=== PATIENT | female | born 1985 | race Caucasian/White ===

== ENCOUNTER 2018-04-19 10:53 | Emergency (ER) | payer OTHER ==
[2018-04-19 12:44] LABS: Absolute Lymphocytes (CBC) 1.8 K/uL (0.7-4.9); Absolute Monocytes 0.4 K/uL (0.1-1.3); Absolute Neutrophil 3.1 K/uL (1.8-8.0); Basophils % 0.6 % (0-1.3); Eosinophils % 2.1 % (0-4.4); Hematocrit 41.2 % (36.0-45.0); Lymphocytes % 32.9 % (15.3-44.8); MCH 32.6 pg (27.0-35.0); MCV 93.3 fL (80-100); MPV 8.5 fL (7.6-11.3); Monocytes % 7.6 % (3.3-12.3); RBC Red Blood Cell Count 4.42 M/uL (3.86-4.86)
[2018-04-19 13:02] LABS: Urine Blood NEGATIVE (NEG); Urine Glucose NEGATIVE (NEG); Urine Protein NEGATIVE (NEG); Urine Specific Gravity 1.015 (1.005-1.030); Urine pH 7.5 (5.0-7.0)
[2018-04-19 13:10] LABS: ALT/SGPT 33 U/L (12-78); AST/SGOT 19 U/L (15-37); Albumin 4.2 g/dL (3.4-5.0); Alkaline Phosphatase 73 U/L (45-117); BUN Blood Urea Nitrogen 6 mg/dL (7-18); Bicarbonate 27 mmol/L (21-32); Bilirubin Direct 0.1 mg/dL (0-0.2); Bilirubin Total 0.5 mg/dL (0.2-1.0); Glucose Level 87 mg/dL (74-106); Lipase 156 U/L (73-393); Potassium 3.8 mmol/L (3.5-5.1); Protein, Total 7.8 g/dL (6.4-8.2); Sodium Level 139 mmol/L (136-145)
--- NOTE | 2018-04-19 15:04 | RAD REPORT ---
EXAM DESCRIPTION: CTAbdomen Pelvis W Contrast - 04/19/2018 2:51 pm CLINICAL HISTORY: Abdominal pain. ABD PAIN COMPARISON: No comparisons TECHNIQUE: Biphasic CT imaging of the abdomen and pelvis was performed with 100 ml non-ionic IV cont rast. All CT scans are performed using dose optimization technique as appropriate and may include automated exposure control or mA/KV adjustment according to patient size. FINDINGS: The lung bases are clear. The liver, spleen, pancreas, adrenal glands and kidneys are within normal limits. No bowel obstruction, free air, free fluid or abscess. The appendix is normal. No evidence of signi ficant lymphadenopathy. No suspicious bony findings. IUD is in place. IMPRESSION: No acute intra-abdominal or pelvic finding.
--- NOTE | 2018-04-19 15:15 | EDPHYS ---
Physician Documentation [facility] Name: Meenakshi García Age: 32 yrs Sex: Female : 1985 Arrival Date: 04/19/2018 Time: 10:56 Bed 13 Private MD: Noah Barnes ED Physician Tadeo Berumen HPI: 04/19 13:45 This 32 yrs old Female presents to ER via Ambulatory with complaints of jr8 Bloody Stools/Abdominal pain. 13:45 The patient presents with abdominal pain in the lower abdomen. Onset: The jr8 symptoms/episode began/occurred acutely, today. The symptoms do not radiate. Associated signs and symptoms: Pertinent positives: rectal bleeding. The symptoms are described as crampy, dull. Modifying factors: The symptoms are alleviated by nothing, the symptoms are aggravated by bowel movements. Severity of pain: At its worst the pain was moderate in the emergency department the pain is unchanged. The patient has not experienced similar symptoms in the past. The patient has not recently seen a physician. Stated that she has dealt with constipation for a long time but has never had bright red blood with a bowel movement or lower abdominal pain . DOGMAN/WOMAN: 11:29 LMP N/A - Irregular menses aj1 Historical: - Allergies: 11:29 No Known Allergies; aj1 - Home Meds: 11:29 fluoxetine 40 mg Oral cap 1 cap once daily [Active]; Mobic oral oral [Active]; Flonase aj1 Nasal [Active]; Zyrtec Oral [Active]; Nexium Oral [Active]; Cyclobenzaprine Oral [Active]; - PMHx: 11:29 GERD; Anxiety; Depression; allergies; Chronic pain; aj1 - Immunization history:: Flu vaccine is up to date. - Social history:: Smoking status: Patient/guardian denies using tobacco. - Ebola Screening: : Patient denies travel to an Ebola-affected area in the 21 days before illness onset. ROS: 13:45 Eyes: Negative for injury, pain, redness, and discharge, ENT: Negative for injury, jr8 pain, and discharge, Neck: Negative for injury, pain, and swelling, Cardiovascular: Negative for chest pain, palpitations, and edema, Respiratory: Negative for shortness of breath, cough, wheezing, and pleuritic chest pain, Back: Negative for injury and pain, MS/Extremity: Negative for injury and deformity, Skin: Negative for injury, rash, and discoloration, Neuro: Negative for headache, weakness, numbness, tingling, and seizure. 13:45 Abdomen/GI: Positive for abdominal pain, constipation, abdominal cramps, rectal bleeding. Exam: 13:45 Eyes: Pupils equal round and reactive to light, extra-ocular motions intact. Lids and jr8 lashes normal. Conjunctiva and sclera are non-icteric and not injected. Cornea within normal limits. Periorbital areas with no swelling, redness, or edema. ENT: Nares patent. No nasal discharge, no septal abnormalities noted. Tympanic membranes are normal and external auditory canals are clear. Oropharynx with no redness, swelling, or masses, exudates, or evidence of obstruction, uvula midline. Mucous membranes moist. Neck: Trachea midline, no thyromegaly or masses palpated, and no cervical lymphadenopathy. Supple, full range of motion without nuchal rigidity, or vertebral point tenderness. No Meningismus. Cardiovascular: Regular rate and rhythm with a normal S1 and S2. No gallops, murmurs, or rubs. Normal PMI, no JVD. No pulse deficits. Respiratory: Lungs have equal breath sounds bilaterally, clear to auscultation and percussion. No rales, rhonchi or wheezes noted. No increased work of breathing, no retractions or nasal flaring. Back: No spinal tenderness. No costovertebral tenderness. Full range of motion. Skin: Warm, dry with normal turgor. Normal color with no rashes, no lesions, and no evidence of cellulitis. MS/ Extremity: Pulses equal, no cyanosis. Neurovascular intact. Full, normal range of motion. Neuro: Awake and alert, GCS 15, oriented to person, place, time, and situation. Cranial nerves II-XII grossly intact. Motor strength 5/5 in all extremities. Sensory grossly intact. Cerebellar exam normal. Normal gait. 13:45 Abdomen/GI: Inspection: abdomen appears normal, Bowel sounds: active, all quadrants, Palpation: soft, in all quadrants, mild abdominal tenderness, in the left lower quadrant, mass, is not appreciated, rebound tenderness, is not appreciated, voluntary guarding, is not appreciated, involuntary guarding, is not appreciated, no appreciated organomegaly, Rectal exam: rectal tone normal, Stool: brown, guaiac positive, hemorrhoid(s), are not appreciated, mass, is not appreciated, swelling, is not appreciated, tenderness, is not appreciated, the exam is chaperoned by the nurse. Vital Signs: 11:29 BP 128 / 97; Pulse 89; Resp 18; Temp 97.8(TE); Pulse Ox 99% on R/A; Weight 68.04 kg aj1 (R); Height 5 ft. 4 in. (162.56 cm) (R); Pain 3/10; 12:39 BP 114 / 76; Pulse 78; Resp 20; Temp 98.6; Pulse Ox 99% on R/A; Pain 5/10; ch 13:45 BP 124 / 80; Pulse 70; Resp 15; Pulse Ox 99% on R/A; ch 15:09 BP 135 / 88; Pulse 78; Resp 18; Temp 98.8; Pulse Ox 99% on R/A; Pain 4/10; ch 11:29 Body Mass Index 25.75 (68.04 kg, 162.56 cm) aj MDM: 11:45 Patient medically screened. jr8 15:12 Data reviewed: vital signs, nurses notes, lab test result(s), radiologic studies, CT jr8 scan, and as a result, I will discharge patient. Data interpreted: Pulse oximetry: on room air is 99 %. Interpretation: normal. 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 15:12 Differential diagnosis: diverticulitis, non-specific abd pain, internal or external jr8 hemorrhoid, UC, mass. 04/19 11:45 Order name: Basic Metabolic Panel; Complete Time: 13:16 jr8 04/19 11:45 Order name: CBC with Diff; Complete Time: 12:47 jr8 04/19 11:45 Order name: Creatinine for Radiology; Complete Time: 13:16 jr8 04/19 11:45 Order name: Hepatic Function; Complete Time: 13:16 jr8 04/19 11:45 Order name: Lipase; Complete Time: 13:16 jr8 04/19 12:34 Order name: Urine Dipstick--Ancillary (enter results); Complete Time: 13:16 bd 04/19 11:45 Order name: IV Saline Lock; Complete Time: 12:55 jr8 04/19 11:45 Order name: Labs collected and sent; Complete Time: 12:55 jr8 04/19 11:45 Order name: Urine Test (obtain specimen); Complete Time: 12:55 jr8 04/19 11:45 Order name: Urine Dipstick-Ancillary (obtain specimen); Complete Time: 12:55 jr8 04/19 12:34 Order name: Urine --Ancillary (enter results); Complete Time: 13:16 bd 04/19 13:19 Order name: CT Abd/Pelvis - W/Contrast; Complete Time: 15:07 jr8 Administered Medications: No medications were administered Disposition: 04/20 07:28 Co-signature as Attending Physician, Tadeo Berumen MD I agree with the assessment and elise plan of care. Disposition: 04/19/18 15:14 Discharged to Home. Impression: Gastrointestinal hemorrhage, unspecified - Lower GI bleeding. - Condition is Stable. - Discharge Instructions: Gastrointestinal Bleeding, Rectal Bleeding. - Prescriptions for Tylenol- Codeine #3 300-30 mg Oral Tablet - take 2 tablet by ORAL route every 6 hours As needed; 30 tablet. Miralax 17 gram/dose Oral - take 1 packet by ORAL route once daily dilute powder in 8 ounces of water or juice; 1 box. - Work release form, Medication Reconciliation Form, Thank You Letter, Antibiotic Education, Prescription Opioid Use form. - Follow up: Edilberto Malagon MD; When: 2 - 3 days; Reason: Recheck today's complaints, Continuance of care, Re-evaluation by your physician. - Problem is new. - Symptoms have improved. Signatures: Dispatcher [employer] EDMS Kathie Figueroa RN RN ch Johnson, Angela, RN RN ajTadeo Cazares MD MD cha Roszak, Josh, PA PA jr8 Corrections: (The following items were deleted from the chart) 04/19 15:32 15:14 04/19/2018 15:14 Discharged to Home. Impression: Gastrointestinal hemorrhage, ch unspecified - Lower GI bleeding. Condition is Stable. Forms are Medication Reconciliation Form, Thank You Letter, Antibiotic Education, Prescription Opioid Use. Follow up: Edilberto Malagon; When: 2 - 3 days; Reason: Recheck today's complaints, Continuance of care, Re-evaluation by your physician. Problem is new. Symptoms have improved. jr8
--- NOTE | 2018-04-19 15:15 | ER ---
Nurse's Notes [facility] Name: Meenakshi García Age: 32 yrs Sex: Female : 1985 Arrival Date: 04/19/2018 Time: 10:56 Bed 13 Private MD: Noah Barnes Diagnosis: Gastrointestinal hemorrhage, unspecified-Lower GI bleeding Presentation: 04/19 11:26 Presenting complaint: Patient states: She has been having trouble going to the bathroom aj1 for the last couple months. Reports her stools have been hard and difficult to pass, since yesterday she has been noticing blood in the bowel after she goes to the bathroom, as well as when she wipes. Reports lower abdominal pain. Transition of care: patient was not received from another setting of care. Onset of symptoms was April 17, 2018. Risk Assessment: Do you want to hurt yourself or someone else? Patient reports no desire to harm self or others. Initial Sepsis Screen: Does the patient meet any 2 criteria? HR > 90 bpm. No. Patient's initial sepsis screen is negative. Does the patient have a suspected source of infection? Yes: Acute abdominal pain. Care prior to arrival: None. 11:26 Method Of Arrival: Ambulatory aj1 11:26 Acuity: KIM 3 aj1 Triage Assessment: 11:29 General: Appears in no apparent distress. comfortable, Behavior is calm, cooperative, aj1 appropriate for age. Pain: Complains of pain in right lower quadrant and left lower quadrant Pain currently is 3 out of 10 on a pain scale. at worst was 6 out of 10 on a pain scale. Neuro: Level of Consciousness is awake, alert, obeys commands. Cardiovascular: Patient's skin is warm and dry. Respiratory: Airway is patent Respiratory effort is even, unlabored, Respiratory pattern is regular, symmetrical. GI: Reports lower abdominal pain, bloody stool. Derm: Skin is pink, warm \T\ dry. normal. HOUSE FELLOW: 11: LMP N/A - Irregular menses aj1 Historical: - Allergies: : No Known Allergies; aj1 - Home Meds: : fluoxetine 40 mg Oral cap 1 cap once daily [Active]; Mobic oral oral [Active]; Flonase aj1 Nasal [Active]; Zyrtec Oral [Active]; Nexium Oral [Active]; Cyclobenzaprine Oral [Active]; - PMHx: 11:29 GERD; Anxiety; Depression; allergies; Chronic pain; aj1 - Immunization history:: Flu vaccine is up to date. - Social history:: Smoking status: Patient/guardian denies using tobacco. - Ebola Screening: : Patient denies travel to an Ebola-affected area in the 21 days before illness onset. Screenin:39 Abuse screen: Denies threats or abuse. Denies injuries from another. Nutritional ch screening: No deficits noted. Tuberculosis screening: No symptoms or risk factors identified. Fall Risk None identified. Assessment: 12:39 General: Appears in no apparent distress. comfortable, Behavior is calm, cooperative, ch appropriate for age. Pain: Complains of pain in abdomen and left lower quadrant and right lower quadrant Pain currently is 5 out of 10 on a pain scale. Pain began suddenly. Neuro: Level of Consciousness is awake, alert, obeys commands, Oriented to person, place, time, situation. Respiratory: Airway is patent Respiratory effort is even, unlabored, Breath sounds are clear bilaterally. GI: Abdomen is round non-distended, Bowel sounds present X 4 quads. Abd is soft and non tender X 4 quads. Reports constipation, cramping, rectal bleeding. : No signs and/or symptoms were reported regarding the genitourinary system. Derm: Skin is pink, warm \T\ dry. 15:21 Reassessment: Patient appears in no apparent distress at this time. Patient and/or ch family updated on plan of care and expected duration. Pain level reassessed. Patient is alert, oriented x 3, equal unlabored respirations, skin warm/dry/pink. Patient states feeling better. Patient states symptoms have improved. Vital Signs: 11:29 BP 128 / 97; Pulse 89; Resp 18; Temp 97.8(TE); Pulse Ox 99% on R/A; Weight 68.04 kg aj1 (R); Height 5 ft. 4 in. (162.56 cm) (R); Pain 3/10; 12:39 BP 114 / 76; Pulse 78; Resp 20; Temp 98.6; Pulse Ox 99% on R/A; Pain 5/10; ch 13:45 BP 124 / 80; Pulse 70; Resp 15; Pulse Ox 99% on R/A; ch 15:09 BP 135 / 88; Pulse 78; Resp 18; Temp 98.8; Pulse Ox 99% on R/A; Pain 4/10; ch 11:29 Body Mass Index 25.75 (68.04 kg, 162.56 cm) aj1 ED Course: 10:56 Patient arrived in ED. rg4 10:57 Noah Barnes MD is Private Physician. rg4 11:28 Triage completed. aj1 11:29 Arm band placed on Patient placed in waiting room, Patient notified of wait time. aj1 11:43 Kathie Figueroa, RN is Primary Nurse. ch 11:45 Sami Howard PA is PHCP. jr8 11:45 Tadeo Berumen MD is Attending Physician. jr8 12:39 Patient has correct armband on for positive identification. Placed in gown. Bed in low ch position. Call light in reach. Side rails up X 1. Pulse ox on. NIBP on. Warm blanket given. 12:39 Inserted saline lock: 20 gauge in right antecubital area, using aseptic technique. ch Blood collected. 14:51 CT Abd/Pelvis - W/Contrast In Process Unspecified. EDMS 14:51 CT completed. Patient tolerated procedure well. Patient moved to CT via wheelchair. jg6 Patient moved back from CT. 15:14 Edilberto Malagon MD is Referral Physician. jr8 15:21 No apparent distress. ch 15:21 No provider procedures requiring assistance completed. IV discontinued, intact, ch bleeding controlled, No redness/swelling at site. Pressure dressing applied. Administered Medications: No medications were administered Outcome: 15:14 Discharge ordered by . jr8 15:21 Discharged to home ambulatory. ch 15:21 Condition: stable 15:21 Discharge instructions given to patient, family, Instructed on discharge instructions, follow up and referral plans. medication usage, Demonstrated understanding of instructions, follow-up care, medications. 15:32 Prescriptions given X 2. ch 15:32 Patient left the ED. ch Signatures: Dispatcher [employer] EDMS Kathie Figueroa, LEO RN Jeanie Nelson RN RN aj1 Sami Howard PA PA jr8 Andreia Vela rg4 Tiffany Vela jg6
== END 2018-04-19 15:32 | disposition home or self-care (01) ==
LOC: ER 10:53
DX: K92.2 Gastrointestinal hemorrhage, unspecified (principal); F41.9 Anxiety disorder, unspecified; F32.9 Major depressive disorder, single episode, unspecified
CPT/HCPCS: 36415; 74177; 80048; 80076; 81003; 81025; 83690; 85025; 99284; Q9967

== ENCOUNTER 2018-08-19 13:20 | Day surgery (SDC) | payer OTHER ==
[2018-08-19] MEDS ORDERED: METRONIDAZOLE 500mg IVPB 500 MG/100 ML BAG IV ONE (13:52)
[2018-08-19] MEDS ORDERED: Ringers Lactate 1,000 ML IV ONE (13:52)
[2018-08-19] MEDS ORDERED: AMPICILLIN/SULBACT 3 GM in NA CHLORIDE 0.9% 100 ML IVPB ONE (14:15)
[2018-08-19 14:16] LABS: BUN Blood Urea Nitrogen 10 mg/dL (7-18); Bicarbonate 25 mmol/L (21-32); Glucose Level 92 mg/dL (74-106); Potassium 3.9 mmol/L (3.5-5.1); Sodium Level 141 mmol/L (136-145)
[2018-08-19] MEDS ORDERED: LIDOCAINE 2% MPF 5 ML VIAL ONE (14:26)
[2018-08-19] MEDS ORDERED: PROPOFOL 200 MG/20 ML VIAL IV ONE ×2 (14:26→16:08)
[2018-08-19] MEDS ORDERED: FENTANYL CITR 100 MCG/2 ML ONE (14:26)
[2018-08-19 14:32] LABS: Absolute Lymphocytes (CBC) 1.6 K/uL (0.7-4.9); Absolute Monocytes 0.5 K/uL (0.1-1.3); Basophils % 0.4 % (0-1.3); Eosinophils % 1.7 % (0-4.4); Hematocrit 41.1 % (36.0-45.0); MPV 8.2 fL (7.6-11.3); Monocytes % 7.2 % (3.3-12.3); RBC Red Blood Cell Count 4.39 M/uL (3.86-4.86)
[2018-08-19] MEDS ORDERED: LIDOCAINE 2% W/EPI 1:200,000 MPF 20 ML VIAL IM ONE (14:48)
[2018-08-19] MEDS: Ringers Lactate 1,000 ML IV SCH (15:00)
[2018-08-19] MEDS ORDERED: ONDANSETRON 4 MG/2 ML VIAL ONE (16:24)
[2018-08-19] MEDS ORDERED: KETOROLAC 30 MG/ML INJ ONE (16:24)
[2018-08-19] MEDS ORDERED: DEXAMETHASONE 10 MG/ML VIAL ONE (16:25)
[2018-08-19] MEDS ORDERED: ONDANSETRON 4 MG/2 ML VIAL IV PRN (16:54)
[2018-08-19] MEDS ORDERED: MORPHINE 2 MG/ML SYR IV PRN (16:54)
[2018-08-19] MEDS ORDERED: IBUPROFEN 200 MG TAB PO PRN (16:54)
[2018-08-19] MEDS ORDERED: Ringers Lactate 1,000 ML IV SCH (17:00)
[2018-08-19 17:13] VITALS: O2SAT 100
[2018-08-19] MEDS ORDERED: BUSPIRONE HCL 5 MG TABLET PO PRN (18:00)
[2018-08-19 18:12] VITALS: BMI 26.6
[2018-08-19] MEDS: AMPICILLIN/SULBACT 3 GM in NA CHLORIDE 0.9% 100 ML IVPB SCH ×2 (19:43→23:49)
[2018-08-19] MEDS ORDERED: MONTELUKAST 10 MG TAB PO SCH (21:00)
[2018-08-19] MEDS ORDERED: FLUOXETINE 20 MG CAP PO SCH (21:00)
[2018-08-19] MEDS: BUSPIRONE HCL 5 MG TABLET PO SCH (23:22)
[2018-08-19] MEDS: HYDROCODONE/APAP 5/325 MG TAB PO PRN (23:23)
[2018-08-20] MEDS: METRONIDAZOLE 500mg IVPB 500 MG/100 ML BAG IV SCH ×2 (01:19→08:31)
[2018-08-20] MEDS: Ringers Lactate 1,000 ML IV SCH ×2 (01:20→07:00)
--- NOTE | 2018-08-20 03:39 | OP ---
Date of Procedure: 08/19/2018 Surgeon: Fay Navarro MD Diesel Pile Driver Operator: No assistants. Preoperative Diagnosis: Right groin abscess and necrosis. Postoperative Diagnosis: Right groin abscess and necrosis. Procedure Performed: Right groin abscess incision and drainage. Cultures taken and wide debridement . Anesthesia: General with LMA. Complications: None. Drains: None. Packing placed in the wound, wet-to-dry. Specimens: Aerobic and anaerobic cultures and wound debridement on the right groin. Indications: The patient is a 32-year-old presenting to the office today with right groin pain incre asing over the past few days, exposure to impetigo in her daughter a few weeks ago, maybe 1 to 2 week s ago. She had no complaints of fever. However, the pain has been increasing. No drainage. On exa mination, she had a large 1 cm necrotic area in the center of a large 5 cm erythematous indurated are a in her groin. No other pathology was noted. The rest of the vulvar exam, vaginal exam normal. No involvement of any vital groin structures. She was sent over to the hospital for I and D because this appeared to be a significant debridement t hat needed to be done promptly and IV antibiotics for the first 24 hours. Description Of Procedure: After starting the patient on Unasyn 3 g and Flagyl 500 mg, she was consen fatemeh and taken back to the OR. She was placed in a supine fashion on the operating table. After LMA was given, she was placed in a dorsal lithotomy position using Suman stirrups. The medial aspect of the thigh, buttocks, groin vulva, vagina, and lower abdomen were prepped and draped in a sterile [facility] ion. Then 2% lidocaine mixed with 1:100,000 epinephrine was injected in a circumferential fashion to the wound, about 16 cc was injected. Then proceeded with an elliptical incision about 2.5 cm and ex tension about another 1.5 cm to a total of 4 cm length in vertical axis, at least 1.5 or 2 cm wide in its longest horizontal axis. Once this was done with a 15 blade, the skin was excised and there was purulent thick discharge from the abscess cavity. This was cultured, aerobic and anaerobic were done and sent off. Then, the absc ess cavity was picked up and debrided. In the superior medial aspect of the abscess there was a necr otic area about a centimeter wide and deep. This had to be debrided until there was bleeding tissue and healthy fat that was visualized. Once all this was done and all the tissue was debrided, a littl e further extension of the incision had to be made and the margins had to be widened to get to health y tissue. Thorough irrigation with normal saline was done packing with Kerlix gauze after hemostasis was secured with the Bovie in 1 spot, then dry Kerlix placed on top, bandaged. Instrument, needle, and sponge counts correct at the end of the case. The patient was recovered from anesthesia and take n to PACU in a stable condition. She will stay overnight with q.6 hours Unasyn 3 g and q.8 hours Fla gyl. Initially when Unasyn was started, within the first few minutes the patient felt anxious and ho t and cold on her body so the Unasyn was stopped, but later on when restarted, she tolerated well wit hout any problems. Past history of penicillin intake without any problems was elicited from the hist ory while the patient was awake, so that was the reason why we restarted the Unasyn. She will have wet-to-dry dressing changes and she will have [place] for pain control as well as Motrin. Her all home medications have been restarted. She will be discharged tomorrow after wound teaching is done. Mother likely to do her dressing changes. JADYN/JUSTYN Voice ID: [id number] Report ID: [id number]
[2018-08-20] MEDS: HYDROCODONE/APAP 5/325 MG TAB PO PRN (05:27)
[2018-08-20] MEDS: AMPICILLIN/SULBACT 3 GM in NA CHLORIDE 0.9% 100 ML IVPB SCH ×2 (05:27→12:00)
[2018-08-20 06:20] LABS: Absolute Lymphocytes (CBC) 0.8 K/uL (0.7-4.9); Absolute Monocytes 0.4 K/uL (0.1-1.3); Absolute Neutrophil 8.8 K/uL (1.8-8.0); Hematocrit 37.5 % (36.0-45.0); Lymphocytes % 8.1 % (15.3-44.8); MPV 8.3 fL (7.6-11.3); Monocytes % 3.5 % (3.3-12.3); RBC Red Blood Cell Count 3.99 M/uL (3.86-4.86)
[2018-08-20] MEDS ORDERED: PANTOPRAZOLE 40MG TABLET PO SCH (06:30)
[2018-08-20 07:41] LABS: Blood Morphology Comment NOT SEEN (NOT SEEN); Platelet Estimate ADEQ; Urine White Blood Cell Casts OK
[2018-08-20] MEDS: BUSPIRONE HCL 5 MG TABLET PO SCH (08:31)
[2018-08-20 08:56] VITALS: BP 120/76; TEMP 99.6
[2018-08-20] MEDS ORDERED: INFLUENZA VACCINE (for 3y+) 0.5 ML DOSE IMVAC ONE (09:00)
[2018-08-20] MEDS ORDERED: FLUTICASONE 50 MCG NAS SCH (09:00)
[2018-08-20] MEDS ORDERED: FLUTICASONE 50MCG NASAL SPRAY NAS SCH (09:00)
[2018-08-20] MEDS ORDERED: MONTELUKAST 10 MG TAB PO SCH (09:00)
[2018-08-20] MEDS ORDERED: FLUOXETINE 20 MG CAP PO SCH (09:00)
== END 2018-08-20 14:10 | disposition home or self-care (01) ==
LOC: OR 13:20 → 4TH 17:28 → OR 08-20 14:10
PROVIDERS: ATTEND Obstetrics & Gynecology
PROC: 0J9C0ZZ Drainage of Pelvic Region Subcutaneous Tissue and Fascia, Open Approach (ICD-10-PCS; principal; 2018-08-19 15:00)
DX: L02.214 Cutaneous abscess of groin (principal)
CPT/HCPCS: 36415; 80048; 81025; 82962; 85025; 86850; 86900; 86901; 87070; 87075; 87205; 88304; G0008; J0295; J1100; J2270; J2405; J2704; J3010; Q2035

== ENCOUNTER 2019-04-17 15:14 | Emergency (ER) | payer OTHER ==
--- NOTE | 2019-04-17 16:38 | RAD REPORT ---
EXAM DESCRIPTION: RAD - Chest Pa And Lat (2 Views) - 04/17/2019 4:14 pm CLINICAL HISTORY: CHEST PAIN COMPARISON: September 2013 TECHNIQUE: PA and lateral views of the chest were obtained. FINDINGS: The lungs are clear. Lung markings are similar to comparison. Heart size is normal and ce ntral vasculature is within normal limits. No pleural effusion or pneumothorax seen. No acute bony finding noted. No aortic abnormality. IMPRESSION: No acute cardiopulmonary process. No significant interval change.
--- NOTE | 2019-04-17 17:38 | EDPHYS ---
Physician Documentation [facility] Name: Meenakshi García Age: 33 yrs Sex: Female : 1985 Arrival Date: 04/17/2019 Time: 15:15 Bed Treatment Private MD: Noah Barnes ED Physician Kobe Nguyễn HPI: 04/17 17:46 This 33 yrs old Female presents to ER via Ambulatory with complaints of Back snw Pain, Chest Pain - when breathing. 17:46 The patient presents with pain that is acute, with no known mechanism of injury, and snw decreased range of motion, and spasm, tightness. The symptoms are located in the mid back radiating to lower chest, worse with movement. Onset: The symptoms/episode began/occurred gradually, 1 week(s) ago, and became persistent. as noted. Associated signs and symptoms: Pertinent positives: chest pain, back pain. The problem was sustained recent cough. Severity of symptoms: At their worst the symptoms were moderate. The patient has experienced similar episodes in the past. The patient has been recently seen by a physician: the patient's primary care provider, with similar presenting complaints, last week. Historical: - Allergies: 15:38 No Known Allergies; la1 - PMHx: 15:38 allergies; Anxiety; Chronic pain; Depression; GERD; la1 - Immunization history:: Adult Immunizations up to date. - Social history:: Smoking status: Patient/guardian denies using tobacco. - Ebola Screening: : No symptoms or risks identified at this time. ROS: 17:44 Constitutional: Negative for fever, chills, and weight loss, Eyes: Negative for injury, snw pain, redness, and discharge, ENT: Negative for injury, pain, and discharge, Neck: Negative for injury, pain, and swelling, Respiratory: Negative for shortness of breath, cough, wheezing, and pleuritic chest pain, Abdomen/GI: Negative for abdominal pain, nausea, vomiting, diarrhea, and constipation, : Negative for injury, bleeding, discharge, and swelling, MS/Extremity: Negative for injury and deformity, Skin: Negative for injury, rash, and discoloration, Neuro: Negative for headache, weakness, numbness, tingling, and seizure. 17:44 Cardiovascular: Positive for chest pain, with movement. 17:44 Back: Positive for pain with movement. Exam: 17:41 Constitutional: This is a well developed, well nourished patient who is awake, alert, snw and in no acute distress. Head/Face: Normocephalic, atraumatic. Eyes: Pupils equal round and reactive to light, extra-ocular motions intact. Lids and lashes normal. Conjunctiva and sclera are non-icteric and not injected. Cornea within normal limits. Periorbital areas with no swelling, redness, or edema. ENT: Nares patent. No nasal discharge, no septal abnormalities noted. Tympanic membranes are normal and external auditory canals are clear. Oropharynx with no redness, swelling, or masses, exudates, or evidence of obstruction, uvula midline. Mucous membranes moist. Neck: Trachea midline, no thyromegaly or masses palpated, and no cervical lymphadenopathy. Supple, full range of motion without nuchal rigidity, or vertebral point tenderness. No Meningismus. Cardiovascular: Regular rate and rhythm with a normal S1 and S2. No gallops, murmurs, or rubs. Normal PMI, no JVD. No pulse deficits. Respiratory: Lungs have equal breath sounds bilaterally, clear to auscultation and percussion. No rales, rhonchi or wheezes noted. No increased work of breathing, no retractions or nasal flaring. Abdomen/GI: Soft, non-tender, with normal bowel sounds. No distension or tympany. No guarding or rebound. No evidence of tenderness throughout. Skin: Warm, dry with normal turgor. Normal color with no rashes, no lesions, and no evidence of cellulitis. MS/ Extremity: Pulses equal, no cyanosis. Neurovascular intact. Full, normal range of motion. Neuro: Awake and alert, GCS 15, oriented to person, place, time, and situation. Cranial nerves II-XII grossly intact. Motor strength 5/5 in all extremities. Sensory grossly intact. Cerebellar exam normal. Normal gait. Psych: Awake, alert, with orientation to person, place and time. Behavior, mood, and affect are within normal limits. 17:41 Chest/axilla: Inspection: normal, Palpation: is normal, tenderness, that is mild, that totally reproduces the patient's complaints. 17:41 Back: pain, that is moderate, of the left subscapular area, right subscapular area and thoracic area, CVA tenderness, is absent, muscle spasm, is appreciated in the mid back area. Vital Signs: 15:38 BP 157 / 100; Pulse 76; Resp 16; Temp 98.4; Pulse Ox 100% on R/A; Weight 73.94 kg; la1 Height 5 ft. 4 in. (162.56 cm); 15:38 Body Mass Index 27.98 (73.94 kg, 162.56 cm) la1 MDM: 16:37 Patient medically screened. snw 17:42 Data reviewed: vital signs, nurses notes. Data interpreted: Pulse oximetry: on room air snw is 100 %. Interpretation: normal. Counseling: I had a detailed discussion with the patient and/or guardian regarding: the historical points, exam findings, and any diagnostic results supporting the discharge/admit diagnosis, the presence of at least one elevated blood pressure reading (>120/80) during this emergency department visit, radiology results, the need for outpatient follow up, to return to the emergency department if symptoms worsen or persist or if there are any questions or concerns that arise at home. Special discussion: Based on the patient's history, exam, and Dx evaluation, there is no indication for emergent intervention or inpatient Tx. It is understood by the patient/guardian that if the Sx's persist or worsen they need to return immediately for re-evaluation. Based on the history and exam findings, there is no indication for further emergent testing or inpatient evaluation. I discussed with the patient/guardian the need to see the primary care provider for further evaluation of the symptoms. 04/17 15:20 Order name: Chest Pa And Lat (2 Views) XRAY snw 04/17 16:40 Order name: RAD; Complete Time: 16:41 EDMS 04/17 17:22 Order name: INCENTIVE SPIROMETRY snw Administered Medications: No medications were administered Disposition: 18:48 Co-signature as Attending Physician, Kobe Nguyễn MD. rn Disposition: 04/17/19 17:23 Discharged to Home. Impression: Costochondritis. - Condition is Stable. - Discharge Instructions: Costochondritis, Incentive Spirometer. - Prescriptions for Tylenol- Codeine #3 300-30 mg Oral Tablet - take 1 tablet by ORAL route every 6 hours As needed; 6 tablet. - Medication Reconciliation Form, Thank You Letter, Antibiotic Education, Prescription Opioid Use, Work release form form. - Follow up: Noah Barnes MD; When: 2 - 3 days; Reason: Recheck today's complaints, Continuance of care, Re-evaluation by your physician. Follow up: Emergency Department; When: As needed; Reason: Worsening of condition. Signatures: Dispatcher [employer] EDMS Mago Ch, RN ICU-C RN ICU-Csnw Erika Paul, Kobe Coto RN, MD MD rn Attema, Lee, RN RN la1 Corrections: (The following items were deleted from the chart) 17:51 17:23 04/17/2019 17:23 Discharged to Home. Impression: Costochondritis. Condition is iw Stable. Forms are Medication Reconciliation Form, Thank You Letter, Antibiotic Education, Prescription Opioid Use. Follow up: Noah Barnes; When: 2 - 3 days; Reason: Recheck today's complaints, Continuance of care, Re-evaluation by your physician. Follow up: Emergency Department; When: As needed; Reason: Worsening of condition. snw
--- NOTE | 2019-04-17 17:38 | ER ---
Nurse's Notes [facility] Name: Meenakshi García Age: 33 yrs Sex: Female : 1985 Arrival Date: 04/17/2019 Time: 15:15 Bed Treatment Private MD: Noah Barnes Diagnosis: Costochondritis Presentation: 04/17 15:37 Presenting complaint: Patient states: my back has been hurting and it is getting worse. la1 It hurts in my back and chest when I take a breath. Transition of care: patient was not received from another setting of care. Onset of symptoms was April 17, 2019. Risk Assessment: Do you want to hurt yourself or someone else? Patient reports no desire to harm self or others. Initial Sepsis Screen: Does the patient meet any 2 criteria? No. Patient's initial sepsis screen is negative. Does the patient have a suspected source of infection? No. Patient's initial sepsis screen is negative. Care prior to arrival: None. 15:37 Method Of Arrival: Ambulatory la1 15:37 Acuity: KIM 4 la1 Historical: - Allergies: 15:38 No Known Allergies; la1 - PMHx: 15:38 allergies; Anxiety; Chronic pain; Depression; GERD; la1 - Immunization history:: Adult Immunizations up to date. - Social history:: Smoking status: Patient/guardian denies using tobacco. - Ebola Screening: : No symptoms or risks identified at this time. Screenin:14 Abuse screen: Denies injuries from another. Nutritional screening: No deficits noted. la1 Tuberculosis screening: No symptoms or risk factors identified. Fall Risk None identified. Assessment: 16:14 General: Appears in no apparent distress. Behavior is calm, cooperative. Pain: la1 Complains of pain in back and chest. Neuro: Level of Consciousness is awake, alert, obeys commands, Oriented to person, place, time, situation. Cardiovascular: Capillary refill < 3 seconds Patient's skin is warm and dry. Respiratory: Airway is patent Respiratory effort is even, unlabored, Respiratory pattern is regular, symmetrical, Breath sounds are clear bilaterally. GI: No signs and/or symptoms were reported involving the gastrointestinal system. : No signs and/or symptoms were reported regarding the genitourinary system. Vital Signs: 15:38 BP 157 / 100; Pulse 76; Resp 16; Temp 98.4; Pulse Ox 100% on R/A; Weight 73.94 kg; la1 Height 5 ft. 4 in. (162.56 cm); 15:38 Body Mass Index 27.98 (73.94 kg, 162.56 cm) la1 ED Course: 15:15 Patient arrived in ED. am2 15:15 Noah Barnes MD is Private Physician. am2 15:32 EKG done, by medical technologist prn. reviewed by Kobe Nguyễn MD. sm3 15:38 Triage completed. la1 15:38 Arm band placed on right wrist. la1 16:12 Gage Flores, RN is Primary Nurse. la1 16:15 No provider procedures requiring assistance completed. Patient did not have IV access la1 during this emergency room visit. 16:15 Patient has correct armband on for positive identification. la1 16:19 Mago Ch FNP-C is PHCP. snw 16:19 Kobe Nguyễn MD is Attending Physician. snw 17:22 Noah Barnes MD is Referral Physician. snw Administered Medications: No medications were administered Outcome: 17:23 Discharge ordered by . snw 17:51 Patient left the ED. iw Signatures: Mago Ch FNP-C TEST EQUIPMENT MECHANIC-Csnw Erika Paul RN RN iw Gage Flores RN RN la1 Hilary Hemphill am2 Elvi Lambert 3
[2019-04-17 20:09] VITALS: BP 157/100; TEMP 98.4; O2SAT 100
--- NOTE | 2019-04-18 07:26 | EKG ---
Test Date: 2019-04-17 Test Time: 15:27:31 Sole Splitter: CHANTELL MEASUREMENT RESULTS: Intervals: Rate: 63 CA: 130 QRSD: 76 QT: 398 QTc: 407 [place]: P: 63 CA: 130 QRS: 78 T: 73 INTERPRETIVE STATEMENTS: Normal sinus rhythm Normal ECG Compared to ECG 09/26/2013 18:10:07 no significant change from previous ECG Electronically Signed On 04-18-19 07:25:57 CDT by Vinny Martinez
== END 2019-04-17 17:51 | disposition home or self-care (01) ==
LOC: ER 15:14
DX: M94.0 Chondrocostal junction syndrome [Tietze] (principal)
CPT/HCPCS: 71046; 93005; 99282

== ENCOUNTER 2019-05-03 08:44 | Emergency (ER) | payer OTHER ==
--- NOTE | 2019-05-03 10:48 | RAD REPORT ---
EXAM DESCRIPTION: RAD - Foot Right 3 View - 05/03/2019 9:39 am CLINICAL HISTORY: Right foot pain status post injury FINDINGS: No fracture or dislocation is seen Osteoporosis
--- NOTE | 2019-05-03 11:24 | EDPHYS ---
Physician Documentation [facility] Name: Meenakshi García Age: 33 yrs Sex: Female : 1985 Arrival Date: 05/03/2019 Time: 08:47 Bed 11 Private MD: ED Physician Silvestre Campos HPI: 05/03 12:53 This 33 yrs old Female presents to ER via Wheelchair with complaints of Foot kdr Injury. 12:53 The patient presents with an abrasion, decreased range of motion, an injury, pain, that kdr is acute, tenderness. The complaints affect the right foot. Context: The problem was sustained at home, resulted from a mis-step by the patient, the patient stepping on Stone/uneven ground the patient can partially bear weight. Onset: The symptoms/episode began/occurred acutely, just prior to arrival. Modifying factors: The symptoms are alleviated by. Associated signs and symptoms: The patient has no apparent associated signs or symptoms. Severity of symptoms: At their worst the symptoms were very mild, in the emergency department the symptoms are unchanged. The patient has not experienced similar symptoms in the past. The patient has not recently seen a physician. 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 - Social history:: Smoking status: Patient/guardian denies using tobacco. - Ebola Screening: : Patient negative for fever greater than or equal to 101.5 degrees Fahrenheit, and additional compatible Ebola Virus Disease symptoms Patient denies exposure to infectious person Patient denies travel to an Ebola-affected area in the 21 days before illness onset No symptoms or risks identified at this time. ROS: 12:53 MS/extremity: Positive for abrasion, pain, tenderness, of the instep of right foot and kdr arch of right foot, Negative for laceration, paresthesias, tingling, warmth. 12:53 Constitutional: Negative for fever, chills, and weight loss, Eyes: Negative for injury, pain, redness, and discharge. Exam: 12:53 Constitutional: This is a well developed, well nourished patient who is awake, alert, kdr and in no acute distress. Head/Face: Normocephalic, atraumatic. Eyes: Pupils equal round and reactive to light, extra-ocular motions intact. Lids and lashes normal. Conjunctiva and sclera are non-icteric and not injected. Cornea within normal limits. Periorbital areas with no swelling, redness, or edema. Neck: Trachea midline, no thyromegaly or masses palpated, and no cervical lymphadenopathy. Supple, full range of motion without nuchal rigidity, or vertebral point tenderness. No Meningismus. 12:53 Musculoskeletal/extremity: Extremities: grossly normal except: noted in the instep of right foot and arch of right foot: abrasion, pain. Vital Signs: 09:04 BP 121 / 79; Pulse 74; Resp 16; Temp 98.2; Pulse Ox 97% on R/A; Weight 74.39 kg; Height iw 5 ft. 4 in. (162.56 cm); Pain 6/10; 09:04 Body Mass Index 28.15 (74.39 kg, 162.56 cm) iw MDM: 11:23 Patient medically screened. kdr 12:53 Data reviewed: vital signs, nurses notes, radiologic studies. Counseling: I had a kdr detailed discussion with the patient and/or guardian regarding: the historical points, exam findings, and any diagnostic results supporting the discharge/admit diagnosis, radiology results, the need for outpatient follow up. 05/03 09:15 Order name: Foot Right 3 View XRAY; Complete Time: 11:20 kdr 05/03 11:22 Order name: Jer wrap-joint: Jer wrap foot - right; Complete Time: 11:38 kdr Administered Medications: 10:51 Not Given (tetanus X 2 years ago): Tetanus-Diphtheria Toxoid Adult 0.5 ml IM once iw Disposition: 05/03/19 11:23 Discharged to Home. Impression: Other sprain of right foot, Abrasion, right foot. - Condition is Stable. - Discharge Instructions: Foot Sprain. - Prescriptions for Ibuprofen 600 mg Oral Tablet - take 1 tablet by ORAL route every 6 hours As needed take with food; 30 tablet. - Medication Reconciliation Form, Thank You Letter, Work release form form. - Follow up: Private Physician; When: 2 - 3 days; Reason: If symptoms return, Further diagnostic work-up, Recheck today's complaints, Continuance of care, Re-evaluation by your physician. - Problem is new. - Symptoms have improved. Signatures: Dispatcher [employer] Silvestre Salas MD MD kdr Erika Pual RN RN iw Corrections: (The following items were deleted from the chart) 11:44 11:23 05/03/2019 11:23 Discharged to Home. Impression: Other sprain of right foot; iw Abrasion, right foot. Condition is Stable. Forms are Medication Reconciliation Form, Thank You Letter, Antibiotic Education, Prescription Opioid Use. Follow up: Private Physician; When: 2 - 3 days; Reason: If symptoms return, Further diagnostic work-up, Recheck today's complaints, Continuance of care, Re-evaluation by your physician. Problem is new. Symptoms have improved. kdr
--- NOTE | 2019-05-03 11:24 | ER ---
Nurse's Notes [facility] Name: Meenakshi García Age: 33 yrs Sex: Female : 1985 Arrival Date: 05/03/2019 Time: 08:47 Bed 11 Private MD: Diagnosis: Other sprain of right foot;Abrasion, right foot Presentation: 05/03 09:03 Presenting complaint: Patient states: stepped off porch step wrong, pain to right foot iw and small laceration noted to bottom of foot, incident occurred this morning. Transition of care: patient was not received from another setting of care. Onset of symptoms was May 03, 2019. Risk Assessment: Do you want to hurt yourself or someone else? Patient reports no desire to harm self or others. Initial Sepsis Screen: Does the patient meet any 2 criteria? No. Patient's initial sepsis screen is negative. Does the patient have a suspected source of infection? No. Patient's initial sepsis screen is negative. Care prior to arrival: None. 09:03 Method Of Arrival: Wheelchair iw 09:03 Acuity: KIM 4 iw Triage Assessment: 10:00 Injury Description: Abrasion sustained to instep of right foot. iw 11:40 General: Appears in no apparent distress. Behavior is calm. 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 - Social history:: Smoking status: Patient/guardian denies using tobacco. - Ebola Screening: : Patient negative for fever greater than or equal to 101.5 degrees Fahrenheit, and additional compatible Ebola Virus Disease symptoms Patient denies exposure to infectious person Patient denies travel to an Ebola-affected area in the 21 days before illness onset No symptoms or risks identified at this time. Screenin:40 Abuse screen: Denies threats or abuse. Denies injuries from another. Nutritional iw screening: No deficits noted. Tuberculosis screening: No symptoms or risk factors identified. Fall Risk None identified. Assessment: 10:44 General: Appears in no apparent distress. Behavior is calm, cooperative. Pain: iw Complains of pain in right foot and instep of right foot. Neuro: Level of Consciousness is awake, alert, obeys commands, Oriented to person, place, time, situation, Moves all extremities. Cardiovascular: Patient's skin is warm and dry. Respiratory: Respiratory effort is even, unlabored. Derm: Skin is intact, is healthy with good turgor. Musculoskeletal: Range of motion: intact in all extremities. Vital Signs: 09:04 BP 121 / 79; Pulse 74; Resp 16; Temp 98.2; Pulse Ox 97% on R/A; Weight 74.39 kg; Height iw 5 ft. 4 in. (162.56 cm); Pain 6/10; 09:04 Body Mass Index 28.15 (74.39 kg, 162.56 cm) iw ED Course: 08:47 Patient arrived in ED. mr 08:54 Silvestre Campos MD is Attending Physician. kdr 09:00 Arm band placed on. iw 09:03 Erika Paul, RN is Primary Nurse. iw 09:04 Triage completed. iw 09:15 Patient has correct armband on for positive identification. iw 09:40 Foot Right 3 View XRAY In Process Unspecified. EDMS 09:50 Assisted to bathroom. bd 09:50 pt given socks. Health Dept. bd 11:40 No provider procedures requiring assistance completed. Patient did not have IV access iw during this emergency room visit. Administered Medications: 10:51 Not Given (tetanus X 2 years ago): Tetanus-Diphtheria Toxoid Adult 0.5 ml IM once iw Outcome: 11:23 Discharge ordered by . kdr 11:43 Discharged to home ambulatory. iw 11:43 Condition: good 11:43 Discharge instructions given to patient, Instructed on discharge instructions, follow up and referral plans. Demonstrated understanding of instructions, follow-up care. 11:44 Patient left the ED. iw Signatures: Dispatcher [employer] EDMS Farideh Méndez bd Silvestre Campos MD MD kdr Rivera, Mary mr Erika Paul, RN RN iw
[2019-05-03 11:56] VITALS: BP 121/79; TEMP 98.2; O2SAT 97
== END 2019-05-03 11:44 | disposition home or self-care (01) ==
LOC: ER 08:44
DX: S93.601A Unspecified sprain of right foot, initial encounter (principal); S90.811A Abrasion, right foot, initial encounter; W01.0XXA Fall on same level from slipping, tripping and stumbling without subsequent striking against object, initial encounter; Y93.9 Activity, unspecified; Y92.9 Unspecified place or not applicable
CPT/HCPCS: 99283

== ENCOUNTER 2019-07-23 04:04 | Emergency (ER) | payer OTHER ==
[2019-07-23] MEDS ORDERED: dexAMETHasone 4 MG TAB ONE (04:29)
--- NOTE | 2019-07-23 05:21 | ER ---
Nurse's Notes [facility] Name: Meenakshi García Age: 33 yrs Sex: Female : 1985 Arrival Date: 07/23/2019 Time: 04:06 Bed 5 Private MD: Diagnosis: bronchitis Presentation: 07/23 04:15 Presenting complaint: Patient states: feeling sick for three weeks with sore throat and wh coughing. Pt states she doesn't know if she had fever. Transition of care: patient was not received from another setting of care. Onset of symptoms was July 23, 2019. Risk Assessment: Do you want to hurt yourself or someone else? Patient reports no desire to harm self or others. Initial Sepsis Screen: Does the patient meet any 2 criteria? No. Patient's initial sepsis screen is negative. Does the patient have a suspected source of infection? Yes: Productive cough/pneumonia. Care prior to arrival: None. 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 - Social history:: Smoking status: Patient uses tobacco products, denies chronic smoking, but will smoke occasionally. - Ebola Screening: : Patient negative for fever greater than or equal to 101.5 degrees Fahrenheit, and additional compatible Ebola Virus Disease symptoms Patient denies exposure to infectious person. Screenin:38 Abuse screen: Denies threats or abuse. Denies injuries from another. Nutritional screening: No deficits noted. Tuberculosis screening: No symptoms or risk factors identified. Fall Risk None identified. Assessment: 04:38 General: Appears in no apparent distress. Behavior is calm, cooperative, appropriate wh for age. Pain: Complains of pain in sore throat. Neuro: Level of Consciousness is awake, alert, obeys commands, Oriented to person, place, time, situation, Appropriate for age. Cardiovascular: Heart tones S1 S2. Respiratory: Reports cough that is Airway is patent Respiratory effort is even, unlabored, Respiratory pattern is regular, symmetrical, Breath sounds are clear bilaterally. GI: Abdomen is flat, non-distended. : No signs and/or symptoms were reported regarding the genitourinary system. EENT: Throat is pink. Derm: Skin is intact, is healthy with good turgor, Skin is pink, warm \T\ dry. normal. Musculoskeletal: Circulation, motion, and sensation intact. 05:20 Reassessment: Patient appears in no apparent distress at this time. No changes from previously documented assessment. Patient and/or family updated on plan of care and expected duration. Pain level reassessed. Patient is alert, oriented x 3, equal unlabored respirations, skin warm/dry/pink. Vital Signs: 04:34 BP 139 / 95; Pulse 76; Resp 18; Temp 98.2; Pulse Ox 100% on R/A; wh 05:32 BP 138 / 84; Pulse 58; Resp 18; Pulse Ox 100% on R/A; ED Course: 04:06 Patient arrived in ED. ds1 04:14 Saida Alex is Primary Nurse. wh 04:21 Sky Pacheco MD is Attending Physician. ps1 04:34 Triage completed. wh 04:39 Arm band placed on right wrist. wh 04:40 Patient has correct armband on for positive identification. Bed in low position. Call light in reach. Side rails up X 1. Pulse ox on. NIBP on. 04:50 CXR XRAY In Process Unspecified. EDMS 05:32 No provider procedures requiring assistance completed. Patient did not have IV access during this emergency room visit. Administered Medications: 04:28 Drug: Decadron 8 mg Route: PO; wh 05:08 Follow up: Response: No adverse reaction Outcome: 05:19 Discharge ordered by . ps1 05:32 Discharged to home ambulatory, with family. wh 05:32 Condition: stable 05:32 Discharge instructions given to patient, family, Instructed on discharge instructions, follow up and referral plans. medication usage, POC Demonstrated understanding of instructions, follow-up care, medications, POC Prescriptions given X 2. 05:33 Patient left the ED. Signatures: Dispatcher [employer] EDWA Desiree Becker dsSaida Farris Phillip, MD MD ps1
--- NOTE | 2019-07-23 05:22 | EDPHYS ---
Physician Documentation [facility] Name: Meenakshi García Age: 33 yrs Sex: Female : 1985 Arrival Date: 07/23/2019 Time: 04:06 Bed 5 Private MD: ED Physician Sky Pacheco HPI: 07/23 04:26 This 33 yrs old Female presents to ER via Unassigned with complaints of ps1 Cough, Sore Throat, Light Headed. 04:26 Patient had symptoms for 3 weeks. Now worse tonight. Has a productive cough. 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 - Social history:: Smoking status: Patient uses tobacco products, denies chronic smoking, but will smoke occasionally. - Ebola Screening: : Patient negative for fever greater than or equal to 101.5 degrees Fahrenheit, and additional compatible Ebola Virus Disease symptoms Patient denies exposure to infectious person. Vital Signs: 04:34 BP 139 / 95; Pulse 76; Resp 18; Temp 98.2; Pulse Ox 100% on R/A; 05:32 BP 138 / 84; Pulse 58; Resp 18; Pulse Ox 100% on R/A; MDM: 04:53 Patient medically screened. ps1 07/23 04:21 Order name: Strep; Complete Time: 05:18 ps1 07/23 04:21 Order name: Flu; Complete Time: 05:18 ps1 07/23 04:21 Order name: CXR XRAY ps1 07/23 05:24 Order name: Throat Culture EDMS Administered Medications: 04:28 Drug: Decadron 8 mg Route: PO; 05:08 Follow up: Response: No adverse reaction Disposition: 07/23/19 05:19 Discharged to Home. Impression: bronchitis. - Condition is Stable. - Discharge Instructions: Acute Bronchitis, Adult. - Prescriptions for Tessalon Perles 100 mg Oral Capsule - take 1 capsule by ORAL route every 8 hours As needed; 15 capsule. Zithromax Z- Mika 250 mg Oral Tablet - take 1 tablet by ORAL route as directed for 5 days Day 1 - take two (2) tablets one time. Day 2, 3, 4 , 5 take one (1) tablet once daily.; 6 tablet. - Medication Reconciliation Form, Thank You Letter, Antibiotic Education, Prescription Opioid Use, Work release form form. - Follow up: Private Physician; When: As needed; Reason: Further diagnostic work-up, Recheck today's complaints, Continuance of care, Re-evaluation by your physician. Follow up: Emergency Department; When: As needed; Reason: Trouble breathing, Worsening of condition. - Problem is an ongoing problem. - Symptoms are unchanged. 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 Impression: bronchitis. Condition is Stable. Forms are Medication Reconciliation Form, Thank You Letter, Antibiotic Education, Prescription Opioid Use. Follow up: Private Physician; When: As needed; Reason: Further diagnostic work-up, Recheck today's complaints, Continuance of care, Re-evaluation by your physician. Follow up: Emergency Department; When: As needed; Reason: Trouble breathing, Worsening of condition. Problem is an ongoing problem. Symptoms are unchanged. ps1
[2019-07-23 05:43] VITALS: TEMP 98.2; O2SAT 100
[2019-07-23 05:52] VITALS: BP 138/84
--- NOTE | 2019-07-23 11:56 | RAD REPORT ---
EXAM DESCRIPTION: RAD - Chest Single View - 07/23/2019 4:50 am CLINICAL HISTORY: COUGH Chest pain. COMPARISON: Chest Pa And Lat (2 Views) dated 04/17/2019; CHEST SINGLE VIEW dated 09/19/2013 FINDINGS: Portable technique limits examination quality. The lungs are grossly clear. The heart is normal in size. No displaced fractures. IMPRESSION: No acute intrathoracic process suspected.
== END 2019-07-23 05:33 | disposition home or self-care (01) ==
LOC: ER 04:04
DX: J40 Bronchitis, not specified as acute or chronic (principal); F32.9 Major depressive disorder, single episode, unspecified; F41.9 Anxiety disorder, unspecified; F90.9 Attention-deficit hyperactivity disorder, unspecified type; Z72.0 Tobacco use
CPT/HCPCS: 87070; 87081; 87804 ×2; 71045; 99284; J8540